=== PATIENT | female | born 1945 | race Two or more races ===

== ENCOUNTER 2022-02-12 14:46 | Emergency (ER) | payer OTHER, MEDICAID ==
[~2022-02-12] VITALS: Ht 152.4 cm; Wt 58.9 kg
[~2022-02-12 14:46] MED LIST: AMLO-489 PO; ASPI-498 PO; CAR125T PO; GABA100C9 PO; HYDR25TA4 PO; HYDR50TA15 PO; ISOS1TAB28 PO; METF-372 PO; ROSU20TA14 PO
[2022-02-12 14:58] VITALS: BP 128/79
== END 2022-02-12 18:11 | disposition home or self-care (01) ==
LOC: ER 14:46
DX: S20.212A Contusion of left front wall of thorax, initial encounter (principal); E11.9 Type 2 diabetes mellitus without complications; I10 Essential (primary) hypertension; X50.1XXA Overexertion from prolonged static or awkward postures, initial encounter; Y93.89 Activity, other specified; Y92.89 Other specified places as the place of occurrence of the external cause; Y99.8 Other external cause status
CPT/HCPCS: 71046